=== PATIENT | female | born 1990 | race Caucasian/White ===

== ENCOUNTER → 2018-09-05 13:17 | Outpatient (CLI) | payer MEDICAID, SELFPAY ==
[2018-09-05 12:21] VITALS: BMI 19.0
[2018-09-05 13:37] LABS: Absolute Lymphocyte Count 1.08 X10^3/ul (0.83-4.51); Absolute Neutrophil Count 1.8 X10^3/uL (2.0-7.7); Basophil# 0.02 X10^3/uL; Basophil% 0.6 % (0-1); Eosinophil# 0.03 X10^3/uL; Eosinophils% 0.9 % (0-5); Hematocrit 36.3 % (37-47); Hemoglobin 12.6 g/dl (12.0-15.0); Lymphocyte # 1.08 X10^3/ul (4.0); Lymphocyte % 31.3 % (19-41); Mean Corp Hgb Conc 34.7 g/gl (32-36); Mean Corpuscular Hgb 30.2 pg (27.0-32.0); Mean Corpuscular Volume 87.1 fL (81-99); Mean Platelet Vol. 9.1 fl (6.2-12.0); Monocyte# 0.56 X10^3/uL; Monocyte% 16.2 % (0-10); Neutrophil # 1.76 X10^3/uL (2.7-7.7); Platelet Count 197 K/mm3 (150-450); RBC Distribution Width CV 12.9 % (11.6-14.6); RBC Distribution Width SD 39.7 fl (35.1-43.9); Red Blood Count 4.17 M/mm3 (4.2-5.4); White Blood Count 3.5 K/mm3 (4.4-11.0)
[2018-09-05 13:43] LABS: POSITIVE COUNT NO; POSITIVE DIFFERENTIAL NO; POSITIVE MORPHOLOGY NO
[2018-09-05 14:59] LABS: HIV - WCH Non-Reactive (Nonreactive)
[2018-09-05 19:04] LABS: Chlamydia Trachomatis by PCR Negative (Negative); Neisserai gonorrhoeae by PCR Negative (Negative); Probe Check PASS; Sample Adequacy Control PASS; Specimen Processing Control PASS
[2018-09-06 10:45] LABS: HEPATITIS B SURFACE AG Negative (Negative)
[2018-09-08 23:33] LABS: Rapid Plasmin Reagin (RPR) NONREACTIVE (NONREACTIVE)
[2018-09-09 16:54] LABS: HPV Reflexed? NOT INDICATED
== END ==
PROVIDERS: Family Provider Internal Medicine; PCP Internal Medicine; Referring Provider Nurse Practitioner Women's Health; Visit Provider Nurse Practitioner Women's Health
DX: Z12.4 Encounter for screening for malignant neoplasm of cervix (principal); Z34.90 Encounter for supervision of normal pregnancy, unspecified, unspecified trimester
CPT/HCPCS: 36415; 85025; 86592; 86703; 86762; 86850; 86900; 87086; 87088; 87340; 87491; 87591; 87624; 88175; G0145

== ENCOUNTER → 2018-10-04 12:46 | Outpatient (CLI) | payer MEDICAID, SELFPAY ==
[2018-10-04 11:49] VITALS: BMI 19.0
== END ==
PROVIDERS: Family Provider Internal Medicine; PCP Internal Medicine; Referring Provider Obstetrics & Gynecology; Visit Provider Obstetrics & Gynecology
DX: Z34.82 Encounter for supervision of other normal pregnancy, second trimester (principal)
CPT/HCPCS: 36415

== ENCOUNTER → 2019-01-12 11:05 | Outpatient (CLI) | payer MEDICAID, SELFPAY ==
[2019-01-12 11:01] VITALS: BMI 19.0
[2019-01-12 11:53] LABS: Absolute Lymphocyte Count 1.11 X10^3/ul (0.83-4.51); Absolute Neutrophil Count 6.7 X10^3/uL (2.0-7.7); Basophil# 0.02 X10^3/uL; Basophil% 0.2 % (0-1); Eosinophil# 0.06 X10^3/uL; Eosinophils% 0.7 % (0-5); Hematocrit 33.3 % (37-47); Hemoglobin 11.4 g/dl (12.0-15.0); Lymphocyte # 1.11 X10^3/ul (4.0); Lymphocyte % 12.6 % (19-41); Mean Corp Hgb Conc 34.2 g/gl (32-36); Mean Corpuscular Hgb 31.1 pg (27.0-32.0); Mean Platelet Vol. 8.7 fl (6.2-12.0); Monocyte# 0.84 X10^3/uL; Monocyte% 9.6 % (0-10); Neutrophil # 6.73 X10^3/uL (2.7-7.7); Neutrophil % 76.6 % (47-70); Platelet Count 201 K/mm3 (150-450); RBC Distribution Width CV 13.6 % (11.6-14.6); RBC Distribution Width SD 44.4 fl (35.1-43.9); Red Blood Count 3.66 M/mm3 (4.2-5.4); White Blood Count 8.8 K/mm3 (4.4-11.0)
[2019-01-12 11:55] LABS: POSITIVE COUNT NO; POSITIVE DIFFERENTIAL NO; POSITIVE MORPHOLOGY NO
[2019-01-12 11:59] LABS: Glucose Challenge Gest 1H 50g 102 mg/dL (70-140)
== END ==
PROVIDERS: Family Provider Internal Medicine; PCP Internal Medicine; Referring Provider Nurse Practitioner Women's Health; Visit Provider Nurse Practitioner Women's Health
DX: O09.90 Supervision of high risk pregnancy, unspecified, unspecified trimester (principal); Z3A.00 Weeks of gestation of pregnancy not specified
CPT/HCPCS: 36415; 82950; 85025

== ENCOUNTER → 2019-01-26 13:27 | Outpatient (CLI) | payer MEDICAID, SELFPAY ==
[2019-01-26 13:25] VITALS: BMI 19.0
== END ==
PROVIDERS: Family Provider Internal Medicine; PCP Internal Medicine; Referring Provider Obstetrics & Gynecology; Visit Provider Obstetrics & Gynecology
DX: O26.899 Other specified pregnancy related conditions, unspecified trimester (principal); Z67.91 Unspecified blood type, Rh negative; Z3A.00 Weeks of gestation of pregnancy not specified
CPT/HCPCS: 36415; 86850; 86900

== ENCOUNTER → 2019-03-13 15:51 | Outpatient (CLI) | payer MEDICAID, SELFPAY ==
[2019-02-14 11:29] VITALS: BMI 19.0
== END ==
PROVIDERS: Family Provider Internal Medicine; PCP Internal Medicine
DX: Z36.85 Encounter for antenatal screening for Streptococcus B (principal)
CPT/HCPCS: 87081

== ENCOUNTER → 2022-09-08 | Outpatient (CLI) | payer MEDICAID, SELFPAY ==
[2022-09-18 19:05] LABS: HPV APTIMA, High Risk Negative (Negative)
== END | disposition home or self-care (01) ==
LOC: LABSPEC 14:20
PROVIDERS: PCP Internal Medicine; Referring Provider Obstetrics & Gynecology; Visit Provider Obstetrics & Gynecology
DX: Z12.4 Encounter for screening for malignant neoplasm of cervix (principal)
CPT/HCPCS: 87624; 88175; G0145

== ENCOUNTER → 2024-02-29 | Outpatient (CLI) | payer MEDICAID, SELFPAY ==
[2024-02-29 10:32] LABS: Absolute Lymphocyte Count 1.67 X10^3/uL (0.83-4.51); Absolute Neutrophil Count 4.6 X10^3/uL (2.0-7.7); Basophil# 0.04 X10^3/uL; Basophil% 0.6 % (0-1); Eosinophil# 0.13 X10^3/uL; Eosinophils% 1.8 % (0-5); Hematocrit 35.4 % (37-47); Hemoglobin 12.2 g/dL (12.0-15.0); Lymphocyte # 1.67 X10^3/ul (0.83-4.51); Lymphocyte % 23.5 % (19-41); Mean Corp Hgb Conc 34.5 g/dL (32-36); Mean Corpuscular Hgb 30.6 pg (27.0-32.0); Mean Corpuscular Volume 88.7 fL (81-99); Mean Platelet Vol. 8.7 fl (6.2-12.0); Monocyte% 8.4 % (0-10); NRBC Flagged by Analyzer 0 % (0-5); Neutrophil # 4.64 X10^3/uL (2.7-7.7); Neutrophil % 65.3 % (47-70); Platelet Count 238 K/mm3 (150-450); RBC Distribution Width CV 13.1 % (11.6-14.6); RBC Distribution Width SD 42.6 fl (35.1-43.9); Red Blood Count 3.99 M/mm3 (4.2-5.4); White Blood Count 7.1 K/mm3 (4.4-11.0)
[2024-02-29 11:36] LABS: HIV - WCH Non-Reactive (Nonreactive); Hepatitis B Surface Antigen Non-Reactive (Nonreactive); Hepatitis C Antibody Non-Reactive (Nonreactive); Rubella IgG Reactive (Nonreactive); Syphilis Antibodies Non-reactive
[2024-03-02 03:07] LABS: Chlamydia By Nucleic Acid AMP Negative (Negative); Gonococcus By Nucleic Acid AMP Negative (Negative)
== END | disposition home or self-care (01) ==
PROVIDERS: PCP Internal Medicine; Referring Provider Obstetrics & Gynecology; Visit Provider Obstetrics & Gynecology
DX: O09.91 Supervision of high risk pregnancy, unspecified, first trimester (principal); Z3A.00 Weeks of gestation of pregnancy not specified
CPT/HCPCS: 36415; 85025; 86703; 86762; 86780; 86803; 86850; 86900; 86901; 87086; 87340; 87491; 87591

== ENCOUNTER → 2024-06-28 | Outpatient (CLI) | payer MEDICAID, SELFPAY ==
[2024-06-28 11:10] LABS: Absolute Neutrophil Count 6.9 X10^3/uL (2.0-7.7); Basophil# 0.05 X10^3/uL; Basophil% 0.5 % (0-1); Eosinophil# 0.22 X10^3/uL; Eosinophils% 2.3 % (0-5); Hematocrit 36.7 % (37-47); Hemoglobin 12.2 g/dL (12.0-15.0); Lymphocyte % 12.7 % (19-41); Mean Corp Hgb Conc 33.2 g/dL (32-36); Mean Corpuscular Hgb 30.5 pg (27.0-32.0); Mean Corpuscular Volume 91.8 fL (81-99); Mean Platelet Vol. 8.8 fl (6.2-12.0); Monocyte# 0.94 X10^3/uL; NRBC Flagged by Analyzer 0 % (0-5); Neutrophil # 6.94 X10^3/uL (2.7-7.7); Neutrophil % 73.8 % (47-70); Platelet Count 306 K/mm3 (150-450); RBC Distribution Width CV 12.9 % (11.6-14.6); White Blood Count 9.4 K/mm3 (4.4-11.0)
[2024-06-28 11:46] LABS: Glucose Challenge Gest 1H 50g 104 mg/dL (70-140)
[2024-06-28 11:49] LABS: HIV - WCH Non-Reactive (Nonreactive); Syphilis Antibodies Non-reactive
== END | disposition home or self-care (01) ==
LOC: BWCLAB 10:35
PROVIDERS: Obstetrics & Gynecology; PCP Internal Medicine; Referring Provider Obstetrics & Gynecology; Visit Provider Obstetrics & Gynecology
DX: Z13.1 Encounter for screening for diabetes mellitus (principal); O09.92 Supervision of high risk pregnancy, unspecified, second trimester; Z3A.00 Weeks of gestation of pregnancy not specified
CPT/HCPCS: 36415; 82950; 85025; 86703; 86780; 86850; 86900; 86901

== ENCOUNTER 2024-07-12 03:00 | Outpatient (CLI) | payer MEDICAID, SELFPAY ==
[2024-07-12 03:17] VITALS: BP 132/75; PULSE 96; PULSE 99; RESP 16; TEMP 36.3; O2SAT 97; O2SAT 98
[2024-07-12 03:20] VITALS: BMI 31.5
[2024-07-12 03:30] LABS: Color, Urine Yellow (Yellow); Glucose, Dipstick Normal (Normal); Ketone-Dipstick Negative (Negative); Leukocyte Esterase-Dipstick 100 /ul (Negative); Nitrite-Dipstick Negative (Negative); Occult Blood-Urine Negative /ul (Negative); Protein-Dipstick 15 mg/dl (Negative); Urine Bilirubin Dipstick Negative (Negative); Urine Clarity Clear (Clear); Urine Urobilinogen Normal (Normal)
--- NOTE | 2024-07-23 06:24 | OB.TRI.PN_ITS ---
Progress Notes Date of Service: 07/12/24 Progress Note: Patient presents for triage evaluation secondary to cramping FHT: 130 Moderate variability reactive no decelerations category I tracing [place]: no ergular Contractions Assessment and plan: 31 weeks cramping Reactive NST, reassuring maternal and status patient discharged to home to follow-up as schedule. See problem list details for additional plan information. Laboratory Studies: Laboratory Tests 07/12/24 Range/Units 03:25 Urine Color Yellow (Yellow) Urine Clarity Clear (Clear) Urine pH 8.0 (5.0 - 8.0) Ur Specific [place] 1.010 (1.002-1.030) Urine Protein 15 H (Negative) mg/dl Urine Glucose (UA) Normal (Normal) mg/dl Urine Ketones Negative (Negative) mg/dl Urine Occult Blood Negative (Negative) /ul Urine Nitrite Negative (Negative) Urine Bilirubin Negative (Negative) mg/dL Urine Urobilinogen Normal (Normal) mg/dl Ur Leukocyte Esterase 100 H (Negative) /ul Charges/Coding Procedures Urinary/Genital 52xxx-59xxx: 46755-79 non-stress test Interp Assessment & Plan (1) 31 weeks gestation of : (2) Abdominal pain during in third trimester:
== END 2024-07-12 04:15 | disposition home or self-care (01) ==
LOC: WPOUT 03:03 → WP 03:03
PROVIDERS: PCP Internal Medicine; Referring Provider Obstetrics & Gynecology; Visit Provider Obstetrics & Gynecology
DX: O99.891 Other specified diseases and conditions complicating pregnancy (principal); R10.9 Unspecified abdominal pain; Z3A.31 31 weeks gestation of pregnancy
CPT/HCPCS: 59025; 59050; 81002; 87086; 99221; G0378

== ENCOUNTER → 2024-07-27 | Outpatient (CLI) | payer MEDICAID, SELFPAY ==
[2024-07-27 14:29] LABS: Absolute Lymphocyte Count 1.41 X10^3/uL (0.83-4.51); Absolute Neutrophil Count 5.5 X10^3/uL (2.0-7.7); Basophil# 0.03 X10^3/uL; Basophil% 0.4 % (0-1); Eosinophil# 0.18 X10^3/uL; Eosinophils% 2.3 % (0-5); Hematocrit 36.1 % (37-47); Hemoglobin 12.2 g/dL (12.0-15.0); Lymphocyte # 1.41 X10^3/ul (0.83-4.51); Lymphocyte % 17.8 % (19-41); Mean Corp Hgb Conc 33.8 g/dL (32-36); Mean Corpuscular Hgb 30.7 pg (27.0-32.0); Mean Corpuscular Volume 90.7 fL (81-99); Mean Platelet Vol. 8.9 fl (6.2-12.0); Monocyte# 0.78 X10^3/uL; Monocyte% 9.9 % (0-10); NRBC Flagged by Analyzer 0 % (0-5); Neutrophil # 5.45 X10^3/uL (2.7-7.7); Platelet Count 293 K/mm3 (150-450); RBC Distribution Width SD 42.7 fl (35.1-43.9); Red Blood Count 3.98 M/mm3 (4.2-5.4); White Blood Count 7.9 K/mm3 (4.4-11.0)
[2024-07-27 14:44] LABS: ALB/GLOB Ratio 0.6 RATIO (0.9-2.4); AST(SGOT) 16 U/L (15-37); Alanine Aminotransfer ALT/SGPT 11 U/L (13-56); Albumin, Serum 2.4 g/dL (3.2-5.0); Alkaline Phosphatase 132 U/L (45-117); Anion Gap 7 (5-15); BUN 8 mg/dL (7-18); BUN/Creat Ratio 18.8 RATIO (10-20); Calcium,Total 8.5 mg/dL (8.5-10.1); Chloride 107 mmol/L (98-107); Creatinine, Serum 0.42 mg/dL (0.55-1.02); EST Glomerular Filtration Rate 181 mL/min (>60); Est Glom Filt Rate - Afr Amer 219 mL/min (>60); Globulin 4.3 g/dL (2.2-4.2); Glucose 123 mg/dL (74-106); Potassium 3.7 mmol/L (3.5-5.1); Protein, Total 6.7 g/dL (6.4-8.2); Sodium Level 137 mmol/L (136-145)
[2024-07-27 14:47] LABS: Protein:Creat Ratio 548 mg/g CRE (0-200)
== END | disposition home or self-care (01) ==
LOC: BWCLAB 13:43
PROVIDERS: PCP Internal Medicine; Referring Provider Obstetrics & Gynecology; Visit Provider Obstetrics & Gynecology
DX: R80.9 Proteinuria, unspecified (principal)
CPT/HCPCS: 36415; 80053; 82570; 84156; 85025

== ENCOUNTER → 2024-08-10 | Outpatient (CLI) | payer MEDICAID, SELFPAY ==
[2024-08-10 12:09] LABS: Absolute Lymphocyte Count 1.36 X10^3/uL (0.83-4.51); Absolute Neutrophil Count 6.8 X10^3/uL (2.0-7.7); Basophil# 0.04 X10^3/uL; Basophil% 0.4 % (0-1); Eosinophil# 0.16 X10^3/uL; Eosinophils% 1.7 % (0-5); Hematocrit 36.4 % (37-47); Hemoglobin 12.2 g/dL (12.0-15.0); Lymphocyte # 1.36 X10^3/ul (0.83-4.51); Lymphocyte % 14.5 % (19-41); Mean Corp Hgb Conc 33.5 g/dL (32-36); Mean Corpuscular Hgb 30.3 pg (27.0-32.0); Mean Corpuscular Volume 90.5 fL (81-99); Mean Platelet Vol. 9.4 fl (6.2-12.0); Monocyte# 0.91 X10^3/uL; Monocyte% 9.7 % (0-10); NRBC Flagged by Analyzer 0 % (0-5); Neutrophil # 6.83 X10^3/uL (2.7-7.7); Neutrophil % 73.2 % (47-70); Platelet Count 276 K/mm3 (150-450); RBC Distribution Width CV 13.3 % (11.6-14.6); RBC Distribution Width SD 43.3 fl (35.1-43.9); Red Blood Count 4.02 M/mm3 (4.2-5.4); White Blood Count 9.4 K/mm3 (4.4-11.0)
[2024-08-10 12:22] LABS: ALB/GLOB Ratio 0.6 RATIO (0.9-2.4); AST(SGOT) 19 U/L (15-37); Alanine Aminotransfer ALT/SGPT 16 U/L (13-56); Albumin, Serum 2.5 g/dL (3.2-5.0); Alkaline Phosphatase 138 U/L (45-117); Anion Gap 7 (5-15); BUN 6 mg/dL (7-18); BUN/Creat Ratio 12.1 RATIO (10-20); Calcium,Total 8.5 mg/dL (8.5-10.1); Chloride 106 mmol/L (98-107); EST Glomerular Filtration Rate 152 mL/min (>60); Est Glom Filt Rate - Afr Amer 183 mL/min (>60); Globulin 4.4 g/dL (2.2-4.2); Glucose 107 mg/dL (74-106); Potassium 4.1 mmol/L (3.5-5.1); Protein, Total 6.9 g/dL (6.4-8.2); Sodium Level 136 mmol/L (136-145)
[2024-08-10 12:23] LABS: Protein, Urine (Random) 43.7 mg/dL (<11.9); Protein:Creat Ratio 472 mg/g CRE (0-200)
== END | disposition home or self-care (01) ==
LOC: LABSPEC 11:24 → BWCLAB 11:32
PROVIDERS: PCP Internal Medicine; Referring Provider Advanced Practice Midwife; Visit Provider Advanced Practice Midwife
DX: O12.13 Gestational proteinuria, third trimester (principal); Z3A.00 Weeks of gestation of pregnancy not specified; O09.93 Supervision of high risk pregnancy, unspecified, third trimester
CPT/HCPCS: 36415; 80053; 82570; 84156; 85025

== ENCOUNTER 2024-08-12 13:25 | Outpatient (CLI) | payer MEDICAID, SELFPAY ==
[2024-08-12] VITALS (11 sets, daily range): BP systolic 135–136; BP diastolic 75–79; PULSE 97–106; RESP 14; TEMP 37.6; O2SAT 96–99; BMI 33.8
--- NOTE | 2024-08-12 14:01 | OB.TRI.HP_ITS ---
HPI - General General Date of Service: 08/12/24 HPI Narrative TEREZA ROCHA, is a 34 F who presents at 35.6 with brown tinged bleeding after voiding this morning. no further bleeding since. no adbominal pain, no clots. active fetus. Maternal Data Information JESUS Calculator Estimated Delivery Date Method Current WG Current Estimate 09/10/24 Ultrasound #1 35w 6d Other Estimates 09/18/24 LMP (Certain) 34w 5d PFSH PFSH Medical History Acne Seasonal allergies Home Medications ?Medication ?Instructions ?Recorded ?Last Taken ?Type multivitamin no.47-iron fum 27 1 cap PO DAILY see provid 02/22/24 07/11/24 08:00 History mg-folate no.1 1 mg-dha 300 mg capsule (PNV-DHA) magnesium 250 mg tablet 250 mg PO DAILY 08/12/24 Unknown History Allergy/AdvReac Type Severity Reaction Status Date / Time amoxicillin AdvReac Severe rash, Verified 08/10/24 10:55 throat swelling Penicillins AdvReac Severe rash and Verified 08/10/24 10:55 throat swelling Family History Father Myocardial infarction Surgical History History of myringotomy History of tonsillectomy and adenoidectomy Social History adopted: No household members: children number of children: 2 current occupational status: employed 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 current occupational exposures/hazards: No pets and animals: Yes (Avoid litterbox) pets and animals: cat(s) and dog(s) history of recent travel: No sexually active: Yes Smoking Status: Light Smoker (<10/day) Tobacco: How many years used: 6 quit status: considering quitting alcohol intake: never substance use type: does not use well-balanced diet: daily or most days caffeine: Yes (counselled to decrease to 2 or less a day) Type: carbonated beverages Number of servings: 3 eating out: 1-3 times/week during the past year weight has: increased > 10 lbs what type of physical activity do you participate in: none megan/gnosticist: Jain seatbelt use: always do you feel safe at home: Yes additional social history: FOB Juan C Flores History 4 Elective abortions Hx Para 3 Spontaneous abortions Hx # Term Pregnancies 3 Ectopic pregnancies Hx # Pregnancies Multiple births # of living children 2 Past Pregnancies Del. Date Name GA/Weeks Outcome Route Bth Weight Gen Labor Lgth Anesthesia Del Locatn Provider FOB Unknown Renuka- dec after [id number] 05/14/10 Steven 39 live - full term 7 lbs 4 oz. Male 5 hours epidural Sergio Dexter 11/04/13 Abdirashid 38 live - full term 5 lbs Male 5 hour s none Sergio Dexter Visit Details Expected Delivery Route/Plan Labor Preferences- CB/BF classes: [] labor support person: [] labor intervention preferences: [] pain management options preferred: [] cut cord/dad catch: [] : [] PP control planned: [] discussed possible routes of delivery and associated risks: [] special requests: [] Plans Covid status: [] Flu vaccine: [] Tdap vaccine: declined Rhogam: [] LARC form signed: [] Problem list reviewed and updated with the most current plan of care details and appropriate orders placed. Relevant counseling for the gestational age provided. Continue routine care and follow up unless otherwise noted in visit notes/problem list details OB Flowsheet Initial Weight: Not Recorded Date -?-?-?-?-?-?-?-?-?-?-?-?- EGA Weight BP Urine Prot -?-?-?-?-?-?-?-?-?-?-?-?- Glucose FHR FuHt Pres Dilation -?-?-?-?-?-?-?-?-?-?-?-?- Effaced St Visit Note 02/29/24 -?-?-?-?-?-?-?-?-?-?-?-?- 12w 2d 145 lb 8 oz 119/73 -?-?-?-?-?-?-?-?-?-?-?-?- 160 -?-?-?-?-?-?-?-?-?-?-?-?- JV- CRL 59mm con sistent with 12 weeks 2 days. desires NIPT. wants to quit smoking. will try kathie. last child age 5 months of congenital heart defect. 03/29/24 -?-?-?-?-?-?-?-?-?-?-?-?- 16w 3d 154 lb 110/72 Negative -?-?-?-?-?-?-?-?-?-?-?-?- Negative 154 -?-?-?-?-?-?-?-?-?-?-?-?- MH-No VB. Feels well. She got NIPT results per website. LR Boy. [facility] anatomy/consult and also echo at 24 wk 04/12/24 -?-?-?-?-?-?-?-?-?-?-?-?- 18w 3d 157 lb 126/72 Negative -?-?-?-?-?-?-?-?-?-?-?-?- Negative 150 -?-?-?-?-?-?-?-?-?-?-?-?- - brown discha rge, coming and going nothing bright red. given reduced activity recommendations from [facility]. 04/26/24 -?-?-?-?-?-?-?-?-?-?-?-?- 20w 3d 162 lb 117/73 -?-?-?-?-?-?-?-?-?-?-?-?- 145 -?-?-?-?-?-?-?-?-?-?-?-?- SM-still having some bleeding, passed a small clot, lof good fm 05/22/24 -?-?-?-?-?-?-?-?-?-?-?-?- 24w 1d 177 lb 125/72 Negative -?-?-?-?-?-?-?-?-?-?-?-?- Negative 130 -?-?-?-?-?-?-?-?-?-?-?-?- - no further v b. no lof no regular ctx. discussed weight gain 06/28/24 -?-?-?-?-?-?-?-?-?-?-?-?- 29w 3d 189 lb 6 oz 128/85 Nega tive -?-?-?-?-?-?-?-?-?-?-?-?- Negative 130 -?-?-?-?-?-?-?-?-?-?-?-?- KW- NST today. H as US next week. no bleeding since last visit. Rhogam today. tdap next visit. LARC today 07/06/24 -?-?-?-?-?-?-?-?-?-?-?-?- 30w 4d 192 lb 2 oz 124/81 Nega tive -?-?-?-?-?-?-?-?-?-?-?-?- Negative 150 -?-?-?-?-?-?-?-?-?-?-?-?- JV- nst reactive . no bleeding or cramping complaints. rto in one week. had growth scan yesterday at [facility] and results not back yet. 07/10/24 -?-?-?-?-?-?-?-?-?-?-?-?- 31w 1d 194 lb 132/81 Negative -?-?-?-?-?-?-?-?-?-?-?-?- Negative 140 31 Cephalic -?-?-?-?-?-?-?-?-?-?-?-?- Sm- no vb lof go od fm no reuglar ctx 07/17/24 -?-?-?-?-?-?-?-?-?-?-?-?- 32w 1d 194 lb 120/80 1+ -?-?-?-?-?-?-?-?-?-?-?-?- Negative 120 -?-?-?-?-?-?-?-?-?-?-?-?- JV- NST only tod ay and is reactive. 07/24/24 -?-?-?-?-?-?-?-?-?-?-?-?- 33w 1d 197 lb 134/72 Negative -?-?-?-?-?-?-?-?-?-?-?-?- Negative 130 -?-?-?-?-?--?-?-?-?-?-?-?- SM- no vb lof go od fm no regular ctx no vb 07/27/24 -?-?-?-?-?-?-?-?-?-?-?-?- 33w 4d 195 lb 132/82 1+ -?-?-?-?-?-?-?-?-?-?-?-?- Negative 130 -?-?-?-?-?-?-?-?-?-?-?-?- SM- no vb lof go od fm no reuglar ctx cbc cmp urine protein for 1 dip 08/01/24 -?-?-?-?-?-?-?-?-?-?-?-?- 34w 2d 200 lb 127/83 Negative -?-?-?-?-?-?-?-?-?-?-?-?- Negative 130 -?-?-?-?-?-?-?-?-?-?-?-?- MH-NST only reac tive 08/07/24 -?-?-?-?-?-?-?--?-?-?-?-?- 35w 1d 202 lb 127/83 Negative -?-?-?-?-?-?-?-?-?-?-?-?- Negative 130 35 [place] -?-?-?-?-?-?-?-?-?-?-?-?- JV- no lof, vagi nal bleeding, or dec fm. nst is reactive. pt very anxious. [facility] recommends delivery at 37 weeks. we will discuss if a version is safe with a h/o abruption. It was explained to her that it likely is not. 08/10/24 -?-?-?-?-?-?-?-?-?-?-?-?- 35w 4d 203 lb 136/90 -?-?-?-?-?-?-?-?-?-?-?-?- 135 35 [place] -?-?-?-?-?-?-?-?-?-?-?-?- KW- no vb/lof/ct x. good fm. NST reactive. discussed with VONNIE and she talked to [facility]. recommend P C/S. request to schedule sent for 37 weeks NST FHR Rate Baby A Baseline: 140 Variability:: Moderate Accelerations:: 15 x 15 Decelerations:: None NST Reactive:: Yes FHR Category:: Category I Uterine Activity:: none Assessment & Plan (1) Vaginal bleeding during : COMMENT: bleeding precautions provided. stable. no evidence of abruption. cat 1 tracing. no ctx, no abdominal pain. no active vaginal bleeding. PLAN: Plan Patient presents for triage evaluation secondary to brown tinged bleeding this morning. no active vaginal bleeding. active fetus. FHT: Moderate variability reactive no decelerations category I tracing [place]: no Contractions Assessment and plan: Reactive NST, reassuring maternal and status patient discharged to home to follow-up in office. See problem list details for additional plan information. Charges/Coding Procedures Urinary/Genital 52xxx-59xxx: 76169-33 non-stress test Interp
--- NOTE | 2024-08-12 14:01 | OB.TRI.NOTE ---
HPI - General General Date of Service: 08/12/24 HPI Narrative TEREZA ROCHA, is a 34 F who presents at 35.6 with brown tinged bleeding after voiding this morning. no further bleeding since. no adbominal pain, no clots. active fetus. Maternal Data Information JESUS Calculator Estimated Delivery Date Method Current WG Current Estimate 09/10/24 Ultrasound #1 35w 6d Other Estimates 09/18/24 LMP (Certain) 34w 5d PFSH PFSH Medical History Acne Seasonal allergies Home Medications ?Medication ?Instructions ?Recorded ?Last Taken ?Type multivitamin no.47-iron fum 27 1 cap PO DAILY see provid 02/22/24 07/11/24 08:00 History mg-folate no.1 1 mg-dha 300 mg capsule (PNV-DHA) magnesium 250 mg tablet 250 mg PO DAILY 08/12/24 Unknown History Allergy/AdvReac Type Severity Reaction Status Date / Time amoxicillin AdvReac Severe rash, Verified 08/10/24 10:55 throat swelling Penicillins AdvReac Severe rash and Verified 08/10/24 10:55 throat swelling Family History Father Myocardial infarction Surgical History History of myringotomy History of tonsillectomy and adenoidectomy Social History adopted: No household members: children number of children: 2 current occupational status: employed 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 current occupational exposures/hazards: No pets and animals: Yes (Avoid litterbox) pets and animals: cat(s) and dog(s) history of recent travel: No sexually active: Yes Smoking Status: Light Smoker (<10/day) Tobacco: How many years used: 6 quit status: considering quitting alcohol intake: never substance use type: does not use well-balanced diet: daily or most days caffeine: Yes (counselled to decrease to 2 or less a day) Type: carbonated beverages Number of servings: 3 eating out: 1-3 times/week during the past year weight has: increased > 10 lbs what type of physical activity do you participate in: none megan/confucianism: Cheondoism seatbelt use: always do you feel safe at home: Yes additional social history: FOB Juan C Flores History 4 Elective abortions Hx Para 3 Spontaneous abortions Hx # Term Pregnancies 3 Ectopic pregnancies Hx # Pregnancies Multiple births # of living children 2 Past Pregnancies Del. Date Name GA/Weeks Outcome Route Bth Weight Gen Labor Lgth Anesthesia Del Locatn Provider FOB Unknown Renuka- dec after [id number] 05/14/10 Steven 39 live - full term 7 lbs 4 oz. Male 5 hours epidural Sergio Dexter 11/04/13 Abdirashid 38 live - full term 5 lbs Male 5 hours none Sergio Dexter Visit Details Expected Delivery Route/Plan Labor Preferences- CB/BF classes: [] labor support person: [] labor intervention preferences: [] pain management options preferred: [] cut cord/dad catch: [] : [] PP control planned: [] discussed possible routes of delivery and associated risks: [] special requests: [] Plans Covid status: [] Flu vaccine: [] Tdap vaccine: declined Rhogam: [] LARC form signed: [] Problem list reviewed and updated with the most current plan of care details and appropriate orders placed. Relevant counseling for the gestational age provided. Continue routine care and follow up unless otherwise noted in visit notes/problem list details OB Flowsheet Initial Weight: Not Recorded Date <del>?</del> EGA Weight BP Urine Prot <del>?</del> Glucose FHR FuHt Pres Dilation <del>?</del> Effaced St Visit Note 02/29/24 <del>?</del> 12w 2d 145 lb 8 oz 119/73 <del>?</del> 160 <del>?</del> JV- CRL 59mm consistent with 12 weeks 2 days. desires NIPT. wants to quit smoking. will try nicoderm. last child age 5 months of congenital heart defect. 03/29/24 <del>?</del> 16w 3d 154 lb 110/72 Negative <del>?</del> Negative 154 <del>?</del> MH-No VB. Feels well. She got NIPT results per website. LR Boy. [facility] anatomy/consult and also echo at 24 wk 04/12/24 <del>?</del> 18w 3d 157 lb 126/72 Negative <del>?</del> Negative 150 <del>?</del> SM- brown discharge, coming and going nothing bright red. given reduced activity recommendations from [facility]. 04/26/24 <del>?</del> 20w 3d 162 lb 117/73 <del>?</del> 145 <del>?</del> SM-still having some bleeding, passed a small clot, lof good fm 05/22/24 <del>?</del> 24w 1d 177 lb 125/72 Negative <del>?</del> Negative 130 <del>?</del> SM- no further vb. no lof no regular ctx. discussed weight gain 06/28/24 <del>?</del> 29w 3d 189 lb 6 oz 128/85 Negative <del>?</del> Negative 130 <del>?</del> KW- NST today. Has US next week. no bleeding since last visit. Rhogam today. tdap next visit. LARC today 07/06/24 <del>?</del> 30w 4d 192 lb 2 oz 124/81 Negative <del>?</del> Negative 150 <del>?</del> JV- nst reactive. no bleeding or cramping complaints. rto in one week. had [facility] scan yesterday at [facility] and results not back yet. 07/10/24 <del>?</del> 31w 1d 194 lb 132/81 Negative <del>?</del> Negative 140 31 Cephalic <del>?</del> Sm- no vb lof good fm no reuglar ctx 07/17/24 <del>?</del> 32w 1d 194 lb 120/80 1+ <del>?</del> Negative 120 <del>?</del> JV- NST only today and is reactive. 07/24/24 <del>?</del> 33w 1d 197 lb 134/72 Negative <del>?</del> Negative 130 <del>?</del> SM- no vb lof good fm no regular ctx no vb 07/27/24 <del>?</del> 33w 4d 195 lb 132/82 1+ <del>?</del> Negative 130 <del>?</del> SM- no vb lof good fm no reuglar ctx cbc cmp urine protein for 1 dip 08/01/24 <del>?</del> 34w 2d 200 lb 127/83 Negative <del>?</del> Negative 130 <del>?</del> MH-NST only reactive 08/07/24 <del>?</del> 35w 1d 202 lb 127/83 Negative <del>?</del> Negative 130 35 [place] <del>?</del> JV- no lof, vaginal bleeding, or dec fm. nst is reactive. pt very anxious. [facility] recommends delivery at 37 weeks. we will discuss if a version is safe with a h/o abruption. It was explained to her that it likely is not. 08/10/24 <del>?</del> 35w 4d 203 lb 136/90 <del>?</del> 135 35 [place]ree[place] <del>?</del> KW- no vb/lof/ctx. good fm. NST reactive. discussed with VONNIE and she talked to [facility]. recommend P C/S. request to schedule sent for 37 weeks NST FHR Rate Baby A Baseline: 140 Variability:: Moderate Accelerations:: 15 x 15 Decelerations:: None NST Reactive:: Yes FHR Category:: Category I Uterine Activity:: none Assessment & Plan (1) Vaginal bleeding during : COMMENT: bleeding precautions provided. stable. no evidence of abruption. cat 1 tracing. no ctx, no abdominal pain. no active vaginal bleeding. PLAN: Plan Patient presents for triage evaluation secondary to brown tinged bleeding this morning. no active vaginal bleeding. active fetus. FHT: Moderate variability reactive no decelerations category I tracing [place]: no Contractions Assessment and plan: Reactive NST, reassuring maternal and status patient discharged to home to follow-up in office. See problem list details for additional plan information. Charges/Coding Procedures Urinary/Genital 52xxx-59xxx: 34910-16 non-stress test Interp
== END 2024-08-12 14:41 | disposition home or self-care (01) ==
LOC: WPOUT 13:31 → WP 13:32
PROVIDERS: PCP Internal Medicine; Referring Provider Registered Nurse; Visit Provider Registered Nurse
DX: O46.93 Antepartum hemorrhage, unspecified, third trimester (principal); Z3A.35 35 weeks gestation of pregnancy; F17.200 Nicotine dependence, unspecified, uncomplicated
CPT/HCPCS: 59025; 59050; G0378 ×2

== ENCOUNTER 2024-08-15 14:38 | Inpatient (IN) | payer MEDICAID, SELFPAY ==
[2024-08-15] VITALS (14 sets, daily range): BP systolic 101–141; BP diastolic 62–88; PULSE 78–103; RESP 11–18; TEMP 35.9–37.6; O2SAT 97–100; BMI 33.3
[2024-08-15] MEDS: Lactated Ringers 1,000 ML 999 ML IV (15:00)
[2024-08-15 15:21] LABS: Absolute Lymphocyte Count 1.48 X10^3/uL (0.83-4.51); Absolute Neutrophil Count 5.4 X10^3/uL (2.0-7.7); Basophil# 0.03 X10^3/uL; Basophil% 0.4 % (0-1); Eosinophil# 0.09 X10^3/uL; Eosinophils% 1.1 % (0-5); Hemoglobin 12.2 g/dL (12.0-15.0); Lymphocyte # 1.48 X10^3/ul (0.83-4.51); Lymphocyte % 18.9 % (19-41); Mean Corp Hgb Conc 34.9 g/dL (32-36); Mean Corpuscular Hgb 31.1 pg (27.0-32.0); Mean Corpuscular Volume 89.3 fL (81-99); Mean Platelet Vol. 9.5 fl (6.2-12.0); Monocyte# 0.85 X10^3/uL; Monocyte% 10.8 % (0-10); NRBC Flagged by Analyzer 0 % (0-5); Neutrophil # 5.36 X10^3/uL (2.7-7.7); Neutrophil % 68.3 % (47-70); Platelet Count 255 K/mm3 (150-450); RBC Distribution Width CV 13.3 % (11.6-14.6); RBC Distribution Width SD 43.4 fl (35.1-43.9); Red Blood Count 3.92 M/mm3 (4.2-5.4); White Blood Count 7.9 K/mm3 (4.4-11.0)
[2024-08-15] MEDS: Sodium Citrate/Citric Acid 30 ML UDC PO (16:08)
[2024-08-15] MEDS: Acetaminophen 500 MG Tablet 1000 MG PO (16:08)
[2024-08-15] MEDS: Lactated Ringers 1,000 ML 150 ML IV (16:10)
[2024-08-15 16:28] LABS: Syphilis Antibodies Non-reactive
[2024-08-15] MEDS: Gentamicin IV 350 MG in Dextrose 5%-Water (50mL Bag) 50 ML 117.5 MG IVPB (16:32)
[2024-08-15] MEDS: Clindamycin 900 MG/50 ML BAG 75 MG IV (16:47)
[2024-08-15] MEDS: Oxytocin 15 Units/NS 250ml 15 UNITS/250 ML IV.SOLN 83 UNITS IV (18:00)
--- NOTE | 2024-08-15 18:21 | HP.PCM.OB_ITS ---
HPI - General General Date of Admission: 08/15/24 HPI Narrative TEREZA ROCHA, is a 34 F who presents with vaginal bleeding, history of abruption and spotting since the weekend, was 4 cm on exam in the office and still breech. Maternal Data Information JESUS Calculator Estimated Delivery Date Method Current WG Current Estimate 09/10/24 Ultrasound #1 36w 2d Other Estimates 09/18/24 LMP (Certain) 35w 1d PFSH PFS Medical History Acne Seasonal allergies Home Medications ?Medication ?Instructions ?Recorded ?Last Taken ?Type multivitamin no.47-iron fum 27 1 cap PO DAILY see provid 02/22/24 08/15/24 History mg-folate no.1 1 mg-dha 300 mg capsule (PNV-DHA) magnesium 250 mg tablet 250 mg PO DAILY RLS, 08/12/24 08/15/24 History supplementation Allergy/AdvReac Type Severity Reaction Status Date / Time amoxicillin AdvReac Severe rash, Verified 08/15/24 15:18 throat swelling Penicillins AdvReac Severe rash and Verified 08/15/24 15:18 throat swelling Family History Father Myocardial infarction Surgical History History of myringotomy History of tonsillectomy and adenoidectomy Social History adopted: No household members: children number of children: 2 current occupational status: employed 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 current occupational exposures/hazards: No pets and animals: Yes (Avoid litterbox) pets and animals: cat(s) and dog(s) history of recent travel: No sexually active: Yes Smoking Status: Former smoker Tobacco: How many years used: 6 quit status: considering quitting alcohol intake: never substance use type: does not use well-balanced diet: daily or most days caffeine: Yes (counselled to decrease to 2 or less a day) Type: carbonated beverages Number of servings: 3 eating out: 1-3 times/week during the past year weight has: increased > 10 lbs what type of physical activity do you participate in: none megan/yarsani: Jain seatbelt use: always do you feel safe at home: Yes additional social history: FOB Juan C Flores History 4 Elective abortions Hx Para 3 Spontaneous abortions Hx # Term Pregnancies 3 Ectopic pregnancies Hx # Pregnancies Multiple births # of living children 2 Past Pregnancies Del. Date Name GA/Weeks Outcome Route Bth Weight Infant Gen Labor Lgth Anesthesia Del Locatn Provider FOB Unknown Renuka- marvin after [id number] 05/14/10 Steven 39 live - full term 7 lbs 4 oz. Male 5 hours epidural Sergio Dexter 11/04/13 Abdirashid 38 live - full term 5 lbs Male 5 hour s none Sergio Dexter Visit Details Expected Delivery Route/Plan Labor Preferences- CB/BF classes: [] labor support person: [] labor intervention preferences: [] pain management options preferred: [] cut cord/dad catch: [] : [] PP control planned: [] discussed possible routes of delivery and associated risks: [] special requests: [] Plans Covid status: [] Flu vaccine: [] Tdap vaccine: declined Rhogam: [] LARC form signed: [] Problem list reviewed and updated with the most current plan of care details and appropriate orders placed. Relevant counseling for the gestational age provided. Continue routine care and follow up unless otherwise noted in visit notes/problem list details OB Flowsheet Initial Weight: Not Recorded Date -?-?-?-?-?-?-?-?-?-?-?-?- EGA Weight BP Urine Prot -?-?-?-?-?-?-?-?-?-?-?-?- Glucose FHR FuHt Pres Dilation -?-?-?-?-?-?-?-?-?-?-?-?- Effaced St Visit Note 02/29/24 -?-?-?-?-?-?-?-?-?-?-?-?- 12w 2d 145 lb 8 oz 119/73 -?-?-?-?-?-?-?-?-?-?-?-?- 160 -?-?-?-?-?-?-?-?-?-?-?-?- JV- CRL 59mm con sistent with 12 weeks 2 days. desires NIPT. wants to quit smoking. will try nicoderm. last child age 5 months of congenital heart defect. 03/29/24 -?-?-?-?-?-?-?-?-?-?-?-?- 16w 3d 154 lb 110/72 Negative -?-?-?-?-?-?-?-?-?-?-?-?- Negative 154 -?-?-?-?-?-?-?-?-?-?-?-?- MH-No VB. Feels well. She got NIPT results per website. LR Boy. [facility] anatomy/consult and also echo at 24 wk 04/12/24 -?-?-?-?-?-?-?-?-?-?-?-?- 18w 3d 157 lb 126/72 Negative -?-?-?-?-?-?-?-?-?-?-?-?- Negative 150 -?-?-?-?-?-?-?-?-?-?-?-?- - brown discha rge, coming and going nothing bright red. given reduced activity recommendations from [facility]. 04/26/24 -?-?-?-?-?-?-?-?-?-?-?-?- 20w 3d 162 lb 117/73 -?-?-?-?-?-?-?-?-?-?-?-?- 145 -?-?-?-?-?-?-?-?-?-?-?-?- SM-still having some bleeding, passed a small clot, lof good fm 05/22/24 -?-?-?-?-?-?-?-?-?-?-?-?- 24w 1d 177 lb 125/72 Negative -?-?-?-?-?-?-?-?-?-?-?-?- Negative 130 -?-?-?-?-?-?-?-?-?-?-?-?- - no further v b. no lof no regular ctx. discussed weight gain 06/28/24 -?-?-?-?-?-?-?-?-?-?-?-?- 29w 3d 189 lb 6 oz 128/85 Nega tive -?-?-?-?-?-?-?-?-?-?-?-?- Negative 130 -?-?-?-?-?-?-?-?-?-?-?-?- KW- NST today. H as US next week. no bleeding since last visit. Rhogam today. tdap next visit. LARC today 07/06/24 -?-?-?-?-?-?-?-?-?-?-?-?- 30w 4d 192 lb 2 oz 124/81 Nega tive -?-?-?-?-?-?-?-?-?-?-?-?- Negative 150 -?-?-?-?-?-?-?-?-?-?-?-?- JV- nst reactive . no bleeding or cramping complaints. rto in one week. had growth scan yesterday at [facility] and results not back yet. 07/10/24 -?-?-?-?-?-?-?-?-?-?-?-?- 31w 1d 194 lb 132/81 Negative -?-?-?-?-?-?-?-?-?-?-?-?- Negative 140 31 Cephalic -?-?-?-?-?-?-?-?-?-?-?-?- Sm- no vb lof go od fm no reuglar ctx 07/17/24 -?-?-?-?-?-?-?-?-?-?-?-?- 32w 1d 194 lb 120/80 1+ -?-?-?-?-?-?-?-?-?-?-?-?- Negative 120 -?-?-?-?-?-?-?-?-?-?-?-?- JV- NST only tod ay and is reactive. 07/24/24 -?-?-?-?-?-?-?-?-?-?-?-?- 33w 1d 197 lb 134/72 Negative -?-?-?-?-?-?-?-?-?-?-?-?- Negative 130 -?-?-?-?-?-?--?-?-?-?-?-?- SM- no vb lof go od fm no regular ctx no vb 07/27/24 -?-?-?-?-?-?-?-?-?-?-?-?- 33w 4d 195 lb 132/82 1+ -?-?-?-?-?-?-?-?-?-?-?-?- Negative 130 -?-?-?-?-?-?-?-?-?-?-?-?- SM- no vb lof go od fm no reuglar ctx cbc cmp urine protein for 1 dip 08/01/24 -?-?-?-?-?-?-?-?-?-?-?-?- 34w 2d 200 lb 127/83 Negative -?-?-?-?-?-?-?-?-?-?-?-?- Negative 130 -?-?-?-?-?-?-?-?-?-?-?-?- MH-NST only reac tive 08/07/24 -?-?-?-?-?-?-?-?--?-?-?-?- 35w 1d 202 lb 127/83 Negative -?-?-?-?-?-?-?-?-?-?-?-?- Negative 130 35 Breech -?-?-?-?-?-?-?-?-?-?-?-?- JV- no lof, vagi nal bleeding, or dec fm. nst is reactive. pt very anxious. [facility] recommends delivery at 37 weeks. we will discuss if a version is safe with a h/o abruption. It was explained to her that it likely is not. 08/10/24 -?-?-?-?-?-?-?-?-?-?-?-?- 35w 4d 203 lb 136/90 -?-?-?-?-?-?-?-?-?-?-?-?- 135 35 Breech -?-?-?-?-?-?-?-?-?-?-?-?- KW- no vb/lof/ct x. good fm. NST reactive. discussed with JV and she talked to MFM. recommend P C/S. request to schedule sent for 37 weeks NST FHR Rate Baby A Baseline: 130 Variability:: Moderate Accelerations:: 15 x 15 Decelerations:: None NST Reactive:: Yes FHR Category:: Category I Uterine Activity:: irregular ROS Constitutional Constitutional: Reports systems reviewed and no addt'l complaints, except as documented Eyes Eyes: Denies change in vision ENT HEENT: Reports systems reviewed and no addt'l complaints, except as documented; Denies headache(s) Cardiovascular Cardiovascular: Reports systems reviewed and no addt'l complaints, except as documented; Denies chest pain or dyspnea Respiratory/Chest Respiratory/Chest: Reports systems reviewed and no addt'l complaints, except as documented Gastrointestinal Gastrointestinal: Reports systems reviewed and no addt'l complaints, except as documented; Denies abdominal pain Genitourinary Genitourinary: Reports systems reviewed and no addt'l complaints, except as documented, contractions Details: present (irregular) and movement Details: present; Denies dysuria or genital lesions Musculoskeletal Musculoskeletal: Reports systems reviewed and no addt'l complaints, except as documented Neurologic Neurologic: Reports systems reviewed and no addt'l complaints, except as documented Endocrine Endocrinology: Reports systems reviewed and no addt'l complaints, except as documented Vital Signs Vital Signs Vital Signs: 08/15/24 15:40 08/15/24 18:00 08/15/24 18:00 Temperature 99.6 F H 98.4 F Temperature Source Temporal Temporal Temporal Pulse Rate 103 H 90 Respiratory Rate 16 18 Respiratory Pattern Normal Blood Pressure 136/88 H 128/66 H Blood Pressure Mean 104 86 Blood Pressure Source Monitor Monitor Blood Pressure Position Semi-Fowlers Semi-Fowlers Blood Pressure Location Right Arm Baseline BP 136/88 Pulse Ox 97 98 Oxygen Delivery Method Room Air Room Air 08/15/24 18:15 08/15/24 18:15 Temperature 98.0 F Temperature Source Temporal Temporal Pulse Rate 87 Respiratory Rate 16 Respiratory Pattern Blood Pressure 114/72 Blood Pressure Mean 86 Blood Pressure Source Monitor Blood Pressure Position Semi-Fowlers Blood Pressure Location Right Arm Baseline BP 136/88 Pulse Ox 98 Oxygen Delivery Method Room Air Weight Weight: 200 lb Body Mass Index (BMI) 33.3 Physical Exam Const alert, oriented x3, no apparent distress and healthy appearing HEENT normocephalic and moist oral mucous membranes Head and Scalp: atraumatic Neck full ROM, no lymphadenopathy, supple and thyroid normal General: trachea midline Lymph Lymphatic: no lymphadenopathy noted Chest inspection of chest normal Resp normal respiratory effort Cardio regular rate GI soft to palpation and non-tender GI Narrative: gravid Inspection: gravid external exam normal Manual OB Exam: estimated gestational size appropriate, presentation breech, dilated, effaced and station Extremity normal to inspection General Extremity: Negative for edema Skin no rashes or lesions noted Neuro no focal motor deficits and deep tendon reflexes 2+ bilaterally Motor Exam: strength 5/5 throughout and clonus absent Psych mental status grossly normal Labs Labs Labs: Blood Type A NEGATIVE Antibody Screen NEGATIVE Hct 35.0 % (37-47) L Hgb 12.2 g/dL (12.0-15.0) Pap Smear Negative Syphilis Total Ab Non-reactive Rubella IgG Antibody Reactive (Nonreactive) Hep Bs Antigen Non-Reactive (Nonreactive) Hepatitis C Antibody Non-Reactive (Nonreactive) Chlamydia DNA (LAQUITA) Negative (Negative) N.gonorrhoeae DNA (LAQUITA) Negative (Negative) HIV 1&2 Antibody Non-Reactive (Nonreactive) Glucose 1 Hr 50 gm 104 mg/dL (70-140) Miscellaneous Test Assessment & Plan (1) Vaginal bleeding during : COMMENT: bleeding precautions provided. stable. no evidence of abruption. cat 1 tracing. no ctx, no abdominal pain. no active vaginal bleeding. (2) Proteinuria affecting : QUALIFIERS: Trimester: third trimester Qualified Code(s): O12.13 - Gestational proteinuria, third trimester COMMENT: labs WNL. getting weekly monitoring and early delivery due to abruption. (3) Placental abruption in second trimester: COMMENT: Primary section scheduled 08/22 @ 7:15 with JV, hematoma at 18 weeks, admitted to [facility], if recurrent bleeding recommend repeat admission at 22 weeks. (4) Rh negative state in antepartum period: COMMENT: rhogam given (5) Supervision of high-risk : QUALIFIERS: Trimester: third trimester Qualified Code(s): O09.93 - Supervision of high risk , unspecified, third trimester COMMENT: PRR, , JESUS 09/18/24, boy Michael Abdirashid Hernandez([facility]) VIK Irizarry (6) : QUALIFIERS: Weeks of gestation: 36 weeks Qualified Code(s): Z3A.36 - 36 weeks gestation of COMMENT: LR NIPT per pt. declines carrier testing (7) Current ferreira with history of congenital heart disease in prior child, antepartum: COMMENT: Daughter- age 5 months . needs echo 24 weeks/ordered growth q4 (8) Tobacco user: COMMENT: Quit. counseling provided (9) labor: PLAN: Plan 4 cm dilated with bleeding recommend proceeding with delivery
[2024-08-15] MEDS: Ketorolac 30 MG/ML Syringe IV (18:50)
--- NOTE | 2024-08-15 19:09 | PCM.OPRPT ---
Problems Associated Problem List Diagnoses (1) labor: (2) Vaginal bleeding during : (3) Proteinuria affecting : (4) Placental abruption in second trimester: (5) Rh negative state in antepartum period: (6) Supervision of high-risk : (7) : (8) Current ferreira with history of congenital heart disease in prior child, antepartum: (9) Tobacco user: Operative Report (Standard) Operative Information RN Documented Start/Stop Times: Operation Date: 08/22/24 07:15 <No data on this case meets the specified criteria>
--- NOTE | 2024-08-15 19:11 | EX.PCM.OBRPT ---
Assessment & Plan (1) labor: (2) Vaginal bleeding during : COMMENT: bleeding precautions provided. stable. no evidence of abruption. cat 1 tracing. no ctx, no abdominal pain. no active vaginal bleeding. (3) Proteinuria affecting : QUALIFIERS: Trimester: third trimester Qualified Code(s): O12.13 - Gestational proteinuria, third trimester COMMENT: labs WNL. getting weekly monitoring and early delivery due to abruption. (4) Placental abruption in second trimester: COMMENT: Primary section scheduled 08/22 @ 7:15 with JV, hematoma at 18 weeks, admitted to [facility], if recurrent bleeding recommend repeat admission at 22 weeks. (5) Rh negative state in antepartum period: COMMENT: rhogam given (6) Supervision of high-risk : QUALIFIERS: Trimester: third trimester Qualified Code(s): O09.93 - Supervision of high risk , unspecified, third trimester COMMENT: PRR, , JESUS 09/18/24, Abdirashid Oneill([facility] VIK Irizarry (7) : QUALIFIERS: Weeks of gestation: 36 weeks Qualified Code(s): Z3A.36 - 36 weeks gestation of COMMENT: LR NIPT per pt. declines carrier testing (8) Current ferreira with history of congenital heart disease in prior child, antepartum: COMMENT: Daughter- age 5 months . needs echo 24 weeks/ordered growth q4 (9) Tobacco user: COMMENT: Quit. counseling provided Maternal Data Information JESUS Calculator Estimated Delivery Date Method Current WG Current Estimate 09/10/24 Ultrasound #1 36w 3d Other Estimates 09/18/24 LMP (Certain) 35w 2d Operative Report (OB) Cecarean Details Procedure Type: low transverse Date of Procedure: 08/15/24 Procedure Start Time: 16:59 Procedure Stop Time: 17:40 Pre-Operative Diagnosis: Other Other Pre-Operative diagnosis: see a/p comments Post-Operative Diagnosis: Same as Pre-operative diagnosis Classification: GIANA Type of Anesthesia: Spinal Special Medications: none Antibiotic Given: Clindamycin 600mg IV x1 and Gentamicin 1.5mg/kg IV x1 Drain: Shen to straight drain Estimated Blood Loss: 800 Fluids Replaced: crystalloid Findings Description of surgery: Spinal anesthesia was placed without difficulty. Shen catheter was placed. The patient was placed in the dorsal supine position with leftward tilt. Patient was prepped and draped in the normal sterile fashion. Pfannenstiel skin incision was made with the scalpel and carried through to the underlying layer of fascia with the scalpel. Fascia was nicked in the midline and the incision extended laterally. The rectus bellies were dissected off superiorly and inferiorly with out complication both sharply and bluntly. The peritoneum was entered digitally. The incision was stretched and a low transverse uterine incision was made with the scalpel. The buttox was delivered atraumatically and the right and left legs were swept anteriorly and delivered, followed by the body and the arms which were swept anteriorly and delivered. Gentle traction was placed on the mentum to flex the head but a tight nuchal cord x 3 wa snoted and the head was unable to be delivered, so the cord was clamped and cut and unwound, and then the head was delivered without complication. The placenta was delivered spontaneously immediately following and was noted to be intact and have a three-vessel cord. The uterus was exteriorized cleared of all clots and debris, and the incision was closed in a single layer closure using #1 Monocryl. The ovaries and fallopian tubes were noted to be within normal limits. The uterus was returned to the maternal abdomen and gutters were cleared of all clots and debris. The peritoneum was closed with 3-0 Monocryl in a running fashion. Gloves were changed prior to fascial closure. Fascia was closed with 0 PDS in a running fashion. Subcutaneous tissue was copiously irrigated and the skin was closed with 3-0 Monocryl in a subcuticular fashion. Mepilex dressing was applied without complication. Patient was taken to recovery in stable condition. Surgical findings: breech nuchal x 3 Amniotic Membrane Rupture Type: Artificial Amniotic Fluid Description: Clear Placental Delivery Description: Spontaneous Specimen collected: Yes Description of specimen(s) removed: Placenta Cord Vessel Description: 3 Vessels Delayed Cord Clamping: Yes Operations Support Coordinator fire support man: Yes Gas Utility Worker: Ronen Renae Tasks completed by executive chef assistant: Opening & closing, Retracting and Other (Assisting with delivery of the ) Additional metal moulder's assistant?: No Complications Complications: No Admit VTE Documentation VTE Present on Admission: No VTE Mechan Device Prophylaxis: SCD's Procedures Urinary/Genital [id number]: 84740 delivery+PP Care([facility])
--- NOTE | 2024-08-15 19:14 | DCINST_ITS ---
Discharge Instructions Diet Discharge Diet: No restrictions DC O2, CPAP, BIPAP needs Home O2 Discharge instructions: No Dressing / Incision Discharge Activity: May Not Drive (for 2 weeks or while taking narcotic pain medications.), May Shower and May Take a Tub Bath (in 7 days) May shower in (days): 0 May resume sexual activity in: 4-6 weeks Weight Bearing Status: Full weight bearing Lifting Restrictions: 20 pounds Dressing / Incision Call your doctor if your incision/area has: Continuous Slow Oozing, Sudden Increased Bleeding, Increased Pain/ Swelling, Increased Redness and Foul Smelling Discharge Call your doctor if you observe: Fever of 101 or Higher and Using more than 1 pad per hour (for 2 hours) Suture Line Care: Avoid Pulling/Pushing and Avoid Pinching/Bending Cleanse incision/area with: Soap & Water and Keep Dressing Clean & Dry Follow Up Care Please Follow Up With: Roxanne Potts MD When: Call [phone] to make an appointment for an incision check in 1-2 weeks. Test Results: Test results from this visit will be discussed in further detail at your follow- up appointment, if applicable. Discharge Plan Admission Admit Date/Time: 08/15/24 14:38 Attending Provider: Roxanne Potts Primary Care Provider: Rhoda Nation Discharge Orders/Prescriptions Prescriptions: New naproxen 500 mg tablet 500 mg PO BID PRN PRN (Reason: Pain) Qty: 30 1RF oxycodone-acetaminophen [Percocet] 5-325 mg tablet 1 tab PO Q6H 7 Days Qty: 20 0RF No Action PNV-DHA 27 mg iron-1 mg -300 mg capsule 1 cap PO DAILY magnesium 250 mg tablet 250 mg PO DAILY Referrals / Follow Up: Rhoda Nation MD [Primary Care Provider] - Disposition Disposition (needs filled in before D/C Order can be placed): Home, Self Care
[2024-08-16] VITALS (8 sets, daily range): BP systolic 119–137; BP diastolic 70–83; PULSE 79–100; RESP 15–16; TEMP 36.1–36.7; O2SAT 96–99
[2024-08-16] MEDS: Ketorolac 30 MG/ML Syringe IV ×3 (01:18→12:01)
[2024-08-16 01:37] LABS: Hematocrit 29.6 % (37-47); Hemoglobin 10.1 g/dL (12.0-15.0); Mean Corp Hgb Conc 34.1 g/dL (32-36); Mean Corpuscular Hgb 30.6 pg (27.0-32.0); Mean Corpuscular Volume 89.7 fL (81-99); Mean Platelet Vol. 9.3 fl (6.2-12.0); Platelet Count 218 K/mm3 (150-450); RBC Distribution Width CV 13.3 % (11.6-14.6); RBC Distribution Width SD 43.6 fl (35.1-43.9); White Blood Count 10.9 K/mm3 (4.4-11.0)
[2024-08-16] MEDS: Enoxaparin 40 MG/0.4 ML Syringe SC (05:44)
[2024-08-16] MEDS: 0.9% Saline Lock 10 ML Syringe IV ×2 (06:12→12:01)
--- NOTE | 2024-08-16 08:05 | PN.OBGYN_ITS ---
Subjective Subjective Patient doing well without complaints. Tolerating PO. Ambulating and voiding without difficulty. Baby in SCN. Denies chest pain, shortness of breath, calf pain/swelling, fevers, chills, lightheadedness. Objective Data Objective Data Vital Signs: Vital Signs Temp Pulse Resp BP Pulse Ox O2 Del Method 97.5 F L 86 16 119/74 99 Room Air 08/16/24 07:49 08/16/24 07:49 08/16/24 07:49 08/16/24 07:49 08/16/24 07:49 08/16/24 07:49 Oxygen Delivery Method Room Air Weight: 200 lb Body Mass Index (BMI) 33.3 Intake & Output: Intake and Output for Last 24 Hours 08/14/24 08/15/24 08/16/24 23:59 23:59 23:59 Intake Total 2228.75 / 2228.75 Output Total 950 / 950 700 / 700 Balance 1278.75 / 1278.75 -700 / -700 Lab / Micro Data 08/16/24 01:25 Labs: Laboratory Results - last 24 hr 08/15/24 15:00: WBC 7.9, RBC 3.92 L, Hgb 12.2, Hct 35.0 L, MCV 89.3, MCH 31.1, MCHC 34.9, RDW Std Deviation 43.4, RDW Coeff of Alysha 13.3, Plt Count 255, MPV 9.5, Immature Gran % (Auto) 0.500, Neut % (Auto) 68.3, Lymph % (Auto) 18.9 L, M lennox % (Auto) 10.8 H, Eos % (Auto) 1.1, Baso % (Auto) 0.4, Absolute Neuts (auto) 5.4, Absolute Lymphs (auto) 1.48, Nucleated RBC % 0, Syphilis Total Ab Non- reactive, Blood Type A NEGATIVE, Antibody Screen NEGATIVE 08/16/24 01:25: WBC 10.9, RBC 3.30 L, Hgb 10.1 L, Hct 29.6 L, MCV 89.7, MCH 30.6, MCHC 34.1, RDW Std Deviation 43.6, RDW Coeff of Alysha 13.3, Plt Count 218, MPV 9.3 Physical Exam Const alert and oriented x3 HEENT normocephalic Eyes PERRL Neck full ROM Resp normal respiratory effort GI soft to palpation GI Narrative: FF below U. Dressing dry and intact Palpation: tender other (appropriately) Assessment & Plan (1) delivery delivered: COMMENT: SM twin girls Pattie Oliveira and Rosanna Gore. (2) Rh negative state in antepartum period: PLAN: Plan s/p PPD # 1 1. routine post delivery care 2. breast feeding- support given 3. rh negative 4. rubella immune
[2024-08-16] MEDS: Acetaminophen 500 MG Tablet 1000 MG PO ×3 (08:32→20:54)
[2024-08-16] MEDS: Senna/Docusate Sodium 1 Tablet PO (11:11)
[2024-08-16] MEDS: Naproxen 500 MG Tablet PO (18:42)
[2024-08-16] MEDS: oxyCODONE 5 MG Tablet PO (23:49)
[2024-08-17 03:00] VITALS: BP 131/70; PULSE 83; RESP 16; TEMP 36.6; O2SAT 100
[2024-08-17] MEDS: Acetaminophen 500 MG Tablet 1000 MG PO ×4 (03:07→22:40)
[2024-08-17] MEDS: Naproxen 500 MG Tablet PO ×3 (03:07→20:16)
[2024-08-17] MEDS: Enoxaparin 40 MG/0.4 ML Syringe SC (04:54)
[2024-08-17 07:50] VITALS: BP 130/71; PULSE 83; RESP 16; TEMP 36.9; O2SAT 100
[2024-08-17] MEDS: oxyCODONE 5 MG Tablet PO ×3 (08:37→21:36)
[2024-08-17] MEDS: Senna/Docusate Sodium 1 Tablet PO (08:38)
--- NOTE | 2024-08-17 09:00 | PCM.PN.OB ---
Subjective Subjective Patient doing well without complaints. Tolerating PO. Ambulating and voiding without difficulty. feeding well. Denies chest pain, shortness of breath, calf pain/swelling, fevers, chills, lightheadedness. Objective Data Objective Data Vital Signs: Vital Signs Temp Pulse Resp BP Pulse Ox O2 Del Method 97.8 F 83 16 131/70 H 100 Room Air 08/17/24 03:00 08/17/24 03:00 08/17/24 03:00 08/17/24 03:00 08/17/24 03:00 08/17/24 03:00 Oxygen Delivery Method Room Air Weight: 200 lb Body Mass Index (BMI) 33.3 Intake & Output: Intake and Output for Last 24 Hours 08/15/24 08/16/24 08/17/24 23:59 23:59 23:59 Intake Total 2228.75 / 2228.75 Output Total 950 / 950 1500 / 1500 Balance 1278.75 / 1278.75 -1500 / -1500 Lab / Micro Data 08/16/24 01:25 ROS Constitutional Constitutional: Reports systems reviewed and no addt'l complaints, except as documented Cardiovascular Cardiovascular: Reports systems reviewed and no addt'l complaints, except as documented Respiratory/Chest Respiratory/Chest: Reports systems reviewed and no addt'l complaints, except as documented Gastrointestinal Gastrointestinal: Reports systems reviewed and no addt'l complaints, except as documented Physical Exam Const alert, oriented x3 and no apparent distress HEENT Head and Scalp: atraumatic Resp normal respiratory effort GI soft to palpation and non-tender Inspection: incision intact, healing well and drainage (none) Bimanual Exam - Vag & Uterus: uterus non-tender Uterus Palpation: uterus fundus firm (below Umbilicus) Assessment & Plan (1) delivery delivered: COMMENT: LTCS SM Boy. PLAN: Plan s/p LTCS PPD # 2 1. routine post care 2. breast feeding- support given 3. rh positive 4. rubella immune
[2024-08-17 14:00] VITALS: BP 144/82; PULSE 79; RESP 18; TEMP 36.7; O2SAT 100
[2024-08-17 20:16] VITALS: BP 135/71; PULSE 86; RESP 16; TEMP 36.8; O2SAT 100
[2024-08-18 02:50] VITALS: BP 128/72; PULSE 84; RESP 16; TEMP 36.7; O2SAT 100
[2024-08-18] MEDS: Acetaminophen 500 MG Tablet 1000 MG PO ×2 (03:06→08:35)
[2024-08-18] MEDS: Naproxen 500 MG Tablet PO ×2 (03:06→11:13)
[2024-08-18] MEDS: Enoxaparin 40 MG/0.4 ML Syringe SC (05:12)
[2024-08-18] MEDS: oxyCODONE 5 MG Tablet PO (05:17)
[2024-08-18 08:32] VITALS: BP 124/75; PULSE 85; RESP 16; TEMP 36.7; O2SAT 100
[2024-08-18] MEDS: Senna/Docusate Sodium 1 Tablet PO (08:34)
--- NOTE | 2024-08-18 08:35 | PCM.DC.SUM ---
Providers Date of Admission: 08/15/24 Primary Care Physician: Dr. Rhoda Nation MD Reason For Visit: PRIMARY Diagnosis Discharge Diagnosis (1) delivery delivered: Status: Acute Code(s): O82 - Encounter for delivery without indication Medications at Discharge Home Medications multivitamin no.47-iron fum 27 mg-folate no.1 1 mg-dha 300 mg capsule (PNV-DHA) 1 cap PO DAILY see provid 02/22/24 magnesium 250 mg tablet 250 mg PO DAILY RLS, supplementation 08/12/24 naproxen 500 mg tablet 500 mg PO BID PRN PRN Pain #30 tabs 08/15/24 oxycodone-acetaminophen 5 mg-325 mg tablet (Percocet) 1 tab PO Q6H 7 days #20 tabs 08/15/24 Hospital Course Operations None and section Summary of Care Provided Minutes Spent on Discharge: 30 Hospital Course: The patient was admitted for a repeat section on 08/15/24 for an abruption There were no complications with the mother, but the baby is in [place].. On day #1 she was tolerating pain well and ambulating, on day #2 she was mostly in the NICU and working with investor relations specialist. On day #3 she was ready for discharge Physical Exam HEENT normocephalic Resp normal respiratory effort and normal air movement GI soft to palpation, non-tender and non-distended Rectal Exam: other Other Details: Incision is clean, dry, and intact no CVA tenderness Extremity normal to inspection General Extremity: edema bilateral (trace ) Weight / BMI Weight Weight: 200 lb Body Mass Index (BMI) 33.3 ABG / Lab / Microbiology Data 08/16/24 01:25 D/C Instructions Discharge Diet: No restrictions May shower in (days): 0 May resume sexual activity in: 4-6 weeks Weight Bearing Status: Full weight bearing Call your doctor if your incision/area has: Continuous Slow Oozing, Sudden Increased Bleeding, Increased Pain/ Swelling, Increased Redness and Foul Smelling Discharge Call your doctor if you observe: Fever of 101 or Higher and Using more than 1 pad per hour (for 2 hours) Suture Line Care: Avoid Pulling/Pushing and Avoid Pinching/Bending Cleanse incision/area with: Soap & Water and Keep Dressing Clean & Dry DC O2, CPAP, BIPAP Needs Home O2 Discharge instructions: No Please Follow Up With: Roxanne Potts MD When: Call [phone] to make an appointment for an incision check in 1-2 weeks. Meaningful Use Info Meaningful Use Meaningful Use Diagnoses (Choose all that apply): None applicable Ischemic Stroke Statin Dosing Therapy Reference: STATIN DOSE THERAPY REFERENCE: * Patients > 75 years receive moderate or high dose statin therapy. * Patients 75 years or YOUNGER should receive HIGH intensity statin dose unless contraindicated. You will be required to document reason for non-treatment if statin daily dose does not meet guidelines. HIGH DOSE STATIN THERAPY DAILY Atorvastatin > than or = to 40 mg Rosuvastatin > than or = to 20 mg Amlodipine + Atorvastatin > than or = to 2.5/40 mg Ezetimibe + Simvastatin 10/80 mg Simvastatin 80mg Discharge Plan Admission Admit Date/Time: 08/15/24 14:38 Attending Provider: Roxanne Potts Primary Care Provider: Rhoda Nation Discharge Orders/Prescriptions Prescriptions: New naproxen 500 mg tablet 500 mg PO BID PRN PRN (Reason: Pain) Qty: 30 1RF oxycodone-acetaminophen [Percocet] 5-325 mg tablet 1 tab PO Q6H 7 Days Qty: 20 0RF No Action PNV-DHA 27 mg iron-1 mg -300 mg capsule 1 cap PO DAILY magnesium 250 mg tablet 250 mg PO DAILY Referrals / Follow Up: Rhoda Nation MD [Primary Care Provider] - Disposition Disposition (needs filled in before D/C Order can be placed): Home, Self Care
--- NOTE | 2024-08-18 14:24 | CASEMGMT ---
Social Work Assessment Labor and Delivery Unit Patient Address: [address] [place] [address]. [address] [place] [address] Phone number: [phone] Date of Referral: 08/17/24 Time of Referral:? 922 Referred By: Dr. Potts Date of Intervention: ?08/18/24 Time of Intervention:? 944 Reason for Referral:? hx of loss, baby in scn Sw completed chart review and acknowledges social work consult due to maternal history of infant loss and due to baby requiring admission to special care nursery. Sw presented to bedside and introduced self to mother of baby (MOB- Jelly) and father of baby (FOB- Juan C Lanza). Sw explained sw role during hospitalization and completed psychosocial assessment. History obtained from: medical records, MOB?and FOB. Household composition: SAMEER currently resides with her two older sons: Steven (14) and Abdirashid (10). [place] baby to be included in residence when ready for discharge. VIK currently resides separately from SAMEER with his 14 year old son Jeancarlos. Parents report that they are looking on finding a home to move to where they can all live together. They are hoping that they will be able to do so at the end of the school year. Patient's parent/guardian status: SAMEER states that she and FOMarshall have been together for one year after meeting each other through mutual friends. No concerns reported of domestic violence or intimate partner violence. baby is first baby for parents together. Medical History: ?SAMEER is 34 year old female who is 4, para 3- now 4 following labor and delivery. SAMEER lost a baby in 2019 at 5 months of age following cardiology difficulties. SAMEER received routine care during this with [facility]. SAMEER presented to hospital on 08/15/24 and delivered baby via primary at 36 weeks gestation due to placenta abruption. Baby boy, named Michael Smith, was born weighing 5lb 3oz with apgars of 4, 8 and 9 at one, five and ten minutes of life, respectfully. SAMEER is breast feeding and states that baby will be followed by Dr. Norton for pediatrics. Baby was transferred to [facility] due to prematurity, respiratory distress. No discharge date identified at this time. Educational Status:? Both parents graduated from high school, SAMEER has some college, but no degree. Financial Status: Both parents are employed outside of the home. 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 Infant Supplies: All necessary baby supplies obtained, including: car seat, safe sleep space, clothes, diapers and wipes. Childcare/Caregiver(s):? SAMEER will be the primary caregiver to baby until he is older, than they may need help with daycare, but she is hopeful that parents will be able to arrange their schedules so that one of them is always with him. Transportation:??Both parents have their drivers license and reliable means of transportation. Programs/Agencies Involved: ???SAMEER is connected to [facility] for insurance and SNAP benefits. SAMEER states that she also has WIC. Children Services/Legal Issues:???No history of children services involvement, no issues or concerns warranting referral to be made at this time. Behavioral Health Issues: ??Mental Health History:?VIK states that he only has minimal anxiety due to his stressful job, but it is manageable. MOB denies mental health history. ?? Substance Use History: Parents deny substance use history prior to and during . ?? Family History:?Parents deny family history of substance use or significant mental health diagnoses. ? Drug Screens: No drug screens observed in chart review. Family/Social Stressors:? Parents acknowledge that living separate from one another has its challenges, but they make it work. Support Systems: SAMEER identifies VIK and her mom as her biggest supports. SAMEER states that her mom came to [place] from [place] to stay with her for 6 weeks following the delivery of the baby. Depression/Shaken Baby/Safe Sleeping: Sw educated MOB on signs and symptoms of baby blues and mood and anxiety disorders to be mindful of during this period. MOB and FOB express understanding. MOB states that she thinks she is doing okay, however the more this topic was discussed MOB became tearful and stated that she does worry about going home and is fearful that baby will pass just like her last did. MOB states that she feels more secure knowing that baby is in the NICU for longer period of time, and hopes that will provide her with reassurance when baby is ready for discharge. Sw encouraged MOB to talk to her loved ones/ supports about what she is experiencing and feeling. Sw validated MOB concerns and fears. Sw asked MOB if she is connected to any mental health services or supports, MOB denies. Sw encouraged MOB to talk to her OBGYN if she starts to recognize that she is struggling with her mental health. Sw also encouraged MOB to have a plan in place with family who can help her with baby so that she can sleep. MOB states she does not feel as though she can sleep when they go home because she is scared something will happen to baby. FOB states that he will be available to help care for and will encourage MOB to take care of herself as well. MOB states she met with [facility] in the past for mental health support, and feels comfortable doing the same if she needs to. Sw educated parents on shaken baby prevention and ABCS of safe sleep. Parents express understanding. ASSESSMENT:MOB and baby admitted following labor and delivery. MOB with history of loss and has been struggling with anxiety due to baby being born prematurely and needing admission to special care nursery. MOB admits that she is anxious and worried to take baby home. MOB states she is reluctant to allow anyone to help her with baby, and does not know how she will cope when baby is medically ready for discharge. These issues and concerns discussed between MOB and FOB. Parents encouraged to have a conversation about what will work best for MOB when she goes home. MOB encouraged to accept help and be open to talking to her supports about how she is feeling and what she is struggling with. Maternal grandma will also be at home with MOB for 6 weeks when discharged, this will offer her some good support. MOB reserved at first but opened up more willingly regarding her mental health as the conversation went on. FOB states that he is fully prepared to help with baby, but did not appear to understand how severe MOB's concern is regarding going home with baby when ready. Parents able to talk through some concerns. All necessary baby supplies obtained, supports in place. Help Me Grow encouraged, stating that it may help offer some relief to MOB when at home, but she denied linkage at this time. PLAN:?? No other services requested or indicated. MOB and baby to be discharged when medically ready. Parents were provided literature regarding: signs and symptoms of baby blues and mood and anxiety disorders, Help Me Grow, shaken baby prevention, ABCs of safe sleep and a list of county resources that are available for them should any needs present themselves. Minerva Nazario, CUFF PRESSER, STUNT PERFORMER
--- NOTE | 2024-09-03 13:33 | NURSING ---
notified pt of 2 bottles left in her room. 1. (Oxycodone) empty and 2. Naproxen with 1 whole pill and 2 halves. pt voiced to just dispose of them. pt is aware of a refill on naproxen if needed. verified by alissa.
--- NOTE | 2024-10-20 12:57 | NURSING ---
scoring corrected after validating with nursery documentation. Apgars should be 4/8/9. Yamileth Gilman RN
== END 2024-08-18 14:00 | disposition home or self-care (01) | DRG 540 ==
PROVIDERS: Admitting Provider Obstetrics & Gynecology; PCP Internal Medicine; Referring Provider Obstetrics & Gynecology; Visit Provider Obstetrics & Gynecology
DX: O60.14X0 Preterm labor third trimester with preterm delivery third trimester, not applicable or unspecified (principal); O12.14 Gestational proteinuria, complicating childbirth; O69.1XX0 Labor and delivery complicated by cord around neck, with compression, not applicable or unspecified; Z3A.36 36 weeks gestation of pregnancy; Z87.891 Personal history of nicotine dependence; Z37.0 Single live birth; Z67.91 Unspecified blood type, Rh negative
CPT/HCPCS: 59025; 59050; 85025; 85027; 86780; 86850; 86900; 86901; 99212; 99221; A4216; G0378; G0420; J2405

== ENCOUNTER → 2024-08-15 | Outpatient (CLI) | payer MEDICAID, SELFPAY | END | disposition home or self-care (01) | LOC: LABSPEC 16:14 | PROVIDERS: PCP Internal Medicine; Referring Provider Obstetrics & Gynecology; Visit Provider Obstetrics & Gynecology | DX: O09.93 Supervision of high risk pregnancy, unspecified, third trimester (principal); Z3A.00 Weeks of gestation of pregnancy not specified | CPT/HCPCS: 87081 ==

== ENCOUNTER 2024-08-19 21:55 | Emergency (ER) | payer MEDICAID, SELFPAY ==
[2024-08-19 21:56] VITALS: BP 146/94; PULSE 107; RESP 16; TEMP 36.2; O2SAT 99; BMI 29.9
--- NOTE | 2024-08-19 22:21 | ED.RN ---
miguel a castellon called in regards to patients blood pressure. pt is to be seen in ED
--- NOTE | 2024-08-19 23:08 | EX.ED.DYSGE1 ---
HPI History of Present Illness Chief Complaint: Rash Informant: patient Narrative Narrative: Patient is a 34-year-old female who underwent a a few days ago. She states that today she noticed a red bumpy itchy rash across her abdomen and upper thighs. She states that other than the recent surgical procedure there is been no new exposures and she states no one else at home has the rash. She denies any trouble breathing or swallowing but with the new development of rash in her recent surgical procedure she presents for evaluation [facility] Medical History Acne Seasonal allergies Home Medications ?Medication ?Instructions ?Recorded ?Last Taken ?Type multivitamin no.47-iron fum 27 1 cap PO DAILY see provid 02/22/24 08/15/24 History mg-folate no.1 1 mg-dha 300 mg capsule (PNV-DHA) naproxen 500 mg tablet 500 mg PO BID PRN PRN Pain #30 tabs 08/15/24 Unknown Rx oxycodone-acetaminophen 5 mg-325 1 tab PO Q6H 7 days #20 tabs 08/15/24 Unknown Rx mg tablet (Percocet) prednisone 10 mg tablet 10 mg PO UD #33 tabs 08/19/24 Unknown Rx triamcinolone acetonide 0.5 % 1 applic topical TID 10 days #30 08/19/24 Unknown Rx topical cream grams Allergy/AdvReac Type Severity Reaction Status Date / Time amoxicillin AdvReac Severe rash, Verified 08/19/24 21:55 throat swelling Penicillins AdvReac Severe rash and Verified 08/19/24 21:55 throat swelling Family History Father Myocardial infarction Surgical History History of myringotomy History of tonsillectomy and adenoidectomy Social History adopted: No household members: children number of children: 2 current occupational status: employed 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 current occupational exposures/hazards: No pets and animals: Yes (Avoid litterbox) pets and animals: cat(s) and dog(s) history of recent travel: No sexually active: Yes Smoking Status: Former smoker Tobacco: How many years used: 6 quit status: considering quitting alcohol intake: never substance use type: does not use well-balanced diet: daily or most days caffeine: Yes (counselled to decrease to 2 or less a day) Type: carbonated beverages Number of servings: 3 eating out: 1-3 times/week during the past year weight has: increased > 10 lbs what type of physical activity do you participate in: none megan/spiritism: Presybeterian seatbelt use: always do you feel safe at home: Yes additional social history: VIK Flores ROS ROS ED Constitutional Constitutional ED: Denies chills or fever(s) Eyes Eyes: Denies change in vision ENT ENT ED: Denies sore throat Cardiovascular Cardiovascular: Denies chest pain Respiratory/Chest Respiratory/Chest: Denies cough or dyspnea Gastrointestinal Gastrointestinal: Reports abdominal pain and other Details: Positive abdominal pain that patient states is related to her recent ; Denies diarrhea, nausea or vomiting Genitourinary Genitourinary ED: Denies dysuria Musculoskeletal Musculoskeletal: Denies myalgias Integumentary Reports rash Neurologic Neurologic: Denies headache(s) Hematologic/Lymphatic Hematologic/Lymphatic: Denies easy bleeding or easy bruising Allergic/Immunologic Allergic/Immunologic ED: Denies mouth swelling, tongue swelling or urticaria EXAM Physical Exam Const Vital Signs: 08/19/24 21:56 Temperature 97.1 F L Temperature Source Temporal Pulse Rate 107 H Respiratory Rate 16 Blood Pressure 146/94 H Blood Pressure Mean 111 Pulse Ox 99 Oxygen Delivery Method Room Air Positive well nourished and well developed General Appearance ED: well developed HEENT Reports moist mucous membranes HEENT Narrative: No tongue or lip swelling no oral lesions no airway edema or compromise Eyes PERRL and EOMs intact bilaterally General Eye ED: Negative for scleral icterus Neck supple Neck Narrative: No nuchal rigidity or meningeal sign Resp normal respiratory effort and clear to auscultation bilaterally Resp Narrative: No nasal flaring retractions tachypnea or accessory muscle use Cardio regular rate and regular rhythm GI GI Narrative: Patient has mild diffuse pain on palpation consistent with recent status and but otherwise the abdomen is soft and nondistended with normal active bowel sounds and no voluntary guarding or rigidity or pulsatile mass Extremity Extremity Narrative: Pitting edema to the bilateral lower extremities that is equal and symmetric and consistent recent status Negative Homans' sign bilaterally Neuro oriented x3, CN's II-XII intact bilaterally and no sensory deficits noted Sensorium / Orientation: alert Motor Exam: strength 5/5 throughout Psych mental status grossly normal Skin Skin Narrative: Patient has a erythematous blanchable punctate rash across the lower abdomen that stops at the mid axillary line bilaterally and extends slightly into the upper thigh near the genitalia and this is most consistent with contact dermatitis There is no involvement of the palms or soles and the rash does not appear any other placed on the body MDM MDM MDM Narrative Medical decision making narrative: Patient presented to the ER mildly hypertensive but is anxious/nervous over the development of a rash and desire to get back to her child in the NICU and therefore I do not feel there is need for workup for preeclampsia as she does not complain of headache or change in vision or severe abdominal discomfort. Her main reason for presentation is a rash across her abdomen. I feel this is related to contact dermatitis from the recent and the cleaning solution such as Betadine or the adhesive film use during the surgery. I believe this because the rash is only located along the areas where they would have prepped the abdomen for the procedure and nowhere else on the body. She is not showing anaphylaxis or respiratory distress so there is no need to provide epinephrine and as the rash is overall localized to do not feel that there is emergent need for IV Pepcid Benadryl or Solu-Medrol. In order to reduce potential transmission of steroid to her child she will be given triamcinolone cream but as oral prednisone will not cause any harm to the breast-feeding baby should be given in prednisone taper to use if the cream does not resolve the rash. However at this time the rash is inflammatory/allergic and not infectious and he does not have airway compromise and there is no need for further work up History & Record Review Discussion w/independent historian: Patient Discharge Plan Triage Chief Complaint: Rash ED Provider: Sherman Ascencio Dx/Rx/DC Orders Clinical Impression: Contact dermatitis, delivery delivered Instructions: ED Contact Dermatitis Prescriptions: New prednisone 10 mg tablet 10 mg PO UD Qty: 33 0RF Rx Instructions: Take 4 tablets daily for 3 days, then 3 daily for 3 days, then 2 daily for 3 days, then 1 a day for 3 days then 1 QOD for 3 doses. triamcinolone acetonide 0.5 % cream 1 applic topical TID 10 Days Qty: 30 1RF No Action PNV-DHA 27 mg iron-1 mg -300 mg capsule 1 cap PO DAILY naproxen 500 mg tablet 500 mg PO BID PRN PRN (Reason: Pain) Qty: 30 1RF oxycodone-acetaminophen [Percocet] 5-325 mg tablet 1 tab PO Q6H 7 Days Qty: 20 0RF Primary Care Provider: Rhoda Nation Referrals: Rhoda Nation MD [Primary Care Provider] - Activity Restrictions/Additional Instructions: Your rash is consistent with a contact allergy most likely from cleaning solution or adhesive used during her . Use the topical steroid cream as directed to help with the rash and itch but if it is too intense or not resolving with the topical cream then begin taking the steroid taper as directed. Return to the ER should you have any further concerns or worsening of symptoms Print Language: Lithuanian Disposition Disposition: Home, Self Care Discharge Date/Time: 08/19/24 23:49
== END 2024-08-19 23:49 | disposition home or self-care (01) ==
PROVIDERS: Emergency Provider Emergency Medicine; PCP Internal Medicine; Visit Provider Emergency Medicine
DX: L25.3 Unspecified contact dermatitis due to other chemical products (principal); Z87.891 Personal history of nicotine dependence; Z98.890 Other specified postprocedural states
CPT/HCPCS: 99282

== ENCOUNTER 2024-08-31 05:10 | Emergency (ER) | payer MEDICAID, SELFPAY | END 2024-08-31 06:36 | disposition home or self-care (01) | LOC: ED 06:55 | PROVIDERS: PCP Internal Medicine | DX: N61.0 Mastitis without abscess (principal); N64.4 Mastodynia | CPT/HCPCS: 99282 ==

== ENCOUNTER → 2024-10-04 | Outpatient (CLI) | payer MEDICAID, SELFPAY ==
--- NOTE | 2024-10-04 10:02 | US_ITS ---
PROCEDURE: BREAST LIMITED UNILATERAL REASON FOR EXAM: 34-year-old female presents with palpable concern in the left breast, the patient is 7 weeks and . TECHNIQUE: Targeted left breast ultrasound was performed. COMPARISON: No priors. FINDINGS: Targeted left breast ultrasound was performed of the upper-outer quadrant in the area of palpable concern. The left breast ultrasound demonstrates a cyst with posterior acoustic enhancement at 12 o'clock 5 cm from the nipple, measuring 0.4 x 0.4 x 0.3 cm. Otherwise, there are no suspicious masses or abnormal cystic elements. US/Breast Limited Unilateral IMPRESSION: Left breast cyst at 12 o'clock is benign. There are no suspicious in the area of patient's palpable concern in the left b reast. BI-RADS 2: BENIGN. RECOMMEND ANNUAL MAMMOGRAPHIC SCREENING. Follow-up code: Routine Follow-up Reading Location: [id number]
== END | disposition home or self-care (01) ==
LOC: OPBI 10:01
PROVIDERS: PCP Internal Medicine; Referring Provider Obstetrics & Gynecology; Visit Provider Obstetrics & Gynecology
DX: N63.21 Unspecified lump in the left breast, upper outer quadrant (principal)
CPT/HCPCS: 76642